=== PATIENT | male | born 1970 | race Hispanic/Latino ===

== ENCOUNTER 2019-04-03 15:13 | Emergency (ER) | payer BC ==
[~2019-04-03] VITALS: Ht 160 cm; Wt 76.2 kg
== END 2019-04-03 15:56 | disposition left against medical advice (07) ==
LOC: FSED 15:13
DX: M77.9 Enthesopathy, unspecified (principal); I10 Essential (primary) hypertension; E78.5 Hyperlipidemia, unspecified